=== PATIENT | female | born 1965 | race Caucasian/White ===

== ENCOUNTER 2019-09-12 02:09 | Emergency (ER) | payer OTHER ==
[~2019-09-12] VITALS: Ht 165.1 cm; Wt 63.5 kg
[~2019-09-12 02:09] MED LIST: LISINOPRIL10 MG PO; OMEPRAZOLE40 MG PO; ONDANSETRON HCL4 M2 PO; PREDNISONE 5 MG5 M1 PO; TRAMADOL 50 MG50 MG PO; VANCOCIN 125 M125 M1 PO
[2019-09-12] MEDS ORDERED: METOPROLOL SUCC50 MG PO (02:19)
[2019-09-12] MEDS ORDERED: NOLVADEX20 MG PO (02:19)
[2019-09-12] MEDS ORDERED: HYDROCHLOROTHIA25 M2 PO (02:21)
[2019-09-12] MEDS ORDERED: VITAMIN D3 COM1 EACH PO (02:22)
[2019-09-12] MEDS ORDERED: DICYCLOMINE HCL10 MG PO (02:22)
[2019-09-12 03:19] LABS: ABSOLUTE NEUTROPHILS 6.8 thou/uL (1.4-8.2); BASOPHILS 0.3 % (0.0-2.0); EOSINOPHILS 1.5 % (0.0-3.0); HEMATOCRIT 34.3 % (37.0-47.0); HEMOGLOBIN 11.5 gm/dL (12.0-15.0); LYMPHOCYTES 24.3 % (24.0-44.0); MCH 32.6 pg (26.0-34.0); MCHC 33.5 g/dL (28.0-37.0); MCV 97.3 fL (80.0-100.0); MONOCYTES 9.1 % (1.0-8.0); PLATELET COUNT 345 thou/uL (150-400); POLYS 64.8 % (36.0-66.0); RBC 3.53 mil/uL (4.20-5.00); RDW 11.2 % (10.5-14.5); WBC 10.6 thou/uL (4.0-11.0)
[2019-09-12 03:23] LABS: ANION GAP 8 mmol/L (7-16); BUN 29 mg/dL (7-18); CALCIUM 8.8 mg/dL (8.5-10.1); CHLORIDE 103 mmol/L (98-107); CO2 27 mmol/L (21-32); CREATININE 1.9 mg/dL (0.6-1.0); GLUCOSE 101 mg/dL (74-106); POTASSIUM 3.9 mmol/L (3.5-5.1); SODIUM 138 mmol/L (136-145)
[2019-09-12 03:33] LABS: ALBUMIN 3.3 g/dL (3.4-5.0); SGOT 14 U/L (15-37); SGPT 17 U/L (30-65); TOTAL BILIRUBIN 0.2 mg/dL (<0.1-1.0); TOTAL PROTEIN 7.6 g/dL (6.4-8.2); TROPONIN-I <0.06 ng/mL (<0.06)
[2019-09-12 04:51] VITALS: BP 117/64
--- NOTE | 2019-09-12 08:40 | EKG ---
[facility] [place] [address] ELECTROCARDIOGRAM REPORT Name: IGNACIO FERREIRA Room #: [facility].#: [id number] Admission: 09/12/19 Attend Phys: Discharge: 09/12/19 Date of : 69 Report #: [id number] THIS REPORT FOR: cc: [facility] - Clinic physician unknown [facility] - Clinic physician unknown Boom Snow MD [facility] THIS REPORT FOR: //name// [facility] ED Test Date: 2019-09-12 Test Time: 02:19:07 Pat Name: IGNACIO FERREIRA Department: Room: Gender: F Director [employer] Communications: : 1965 Requested By: Tae Juárez Order Number: [id number] MD: Boom Snow Measurements Intervals [place] Rate: 60 P: 134 IA: 158 QRS: 48 QRSD: 99 T: 63 QT: 410 QTc: 410 Interpretive Statements Sinus rhythm No significant abnormality Compared to ECG 02/01/2018 00:23:24 No significant changes Electronically Signed On 09-12-2019 8:39:26 CDT by Boom Snow [email or web address] <ELECTRONICALLY SIGNED> By: Boom Snow MD, FAC 09/12/19 0839 8 Boom Snow MD, [facility] /EPI
== END 2019-09-12 04:51 | disposition short-term general hospital (02) ==
LOC: ER 02:09
PROVIDERS: Emergency Medicine
DX: I62.9 Nontraumatic intracranial hemorrhage, unspecified (principal); G93.9 Disorder of brain, unspecified; R41.82 Altered mental status, unspecified; F17.210 Nicotine dependence, cigarettes, uncomplicated; Z79.899 Other long term (current) drug therapy

== ENCOUNTER 2021-01-17 23:24 | Emergency (ER) | payer OTHER ==
[~2021-01-17] VITALS: Ht 175.3 cm; Wt 83.9 kg
[~2021-01-17 23:24] MED LIST changes: +DICYCLOMINE HCL10 MG PO; +HYDROCHLOROTHIA25 M2 PO; +METOPROLOL SUCC50 MG PO; +NOLVADEX20 MG PO; +VITAMIN D3 COM1 EACH PO
[2021-01-18 00:52] LABS: ABSOLUTE NEUTROPHILS 6.3 thou/uL (1.4-8.2); BASOPHILS 0.5 % (0.0-2.0); EOSINOPHILS 0.3 % (0.0-3.0); HEMATOCRIT 39.3 % (37.0-47.0); HEMOGLOBIN 12.7 gm/dL (12.0-15.0); LYMPHOCYTES 23.1 % (24.0-44.0); MCHC 32.4 g/dL (28.0-37.0); MCV 92.6 fL (80.0-100.0); MONOCYTES 8.2 % (1.0-8.0); PLATELET COUNT 378 thou/uL (150-400); POLYS 67.9 % (36.0-66.0); RBC 4.25 mil/uL (4.20-5.00); RDW 12.5 % (10.5-14.5); WBC 9.2 thou/uL (4.0-11.0)
[2021-01-18 01:18] LABS: ANION GAP 11 mmol/L (7-16); BUN 25 mg/dL (7-18); CALCIUM 9.1 mg/dL (8.5-10.1); CHLORIDE 102 mmol/L (98-107); CO2 29 mmol/L (21-32); CREATININE 2.5 mg/dL (0.6-1.0); GLUCOSE 138 mg/dL (74-106); SODIUM 142 mmol/L (136-145)
[2021-01-18 01:24] LABS: ALBUMIN 3.7 g/dL (3.4-5.0); DIRECT BILIRUBIN < 0.1 mg/dL (<0.1-0.2); SALICYLATE < 2.8 mg/dL (2.8-20.0); SGOT 25 U/L (15-37); SGPT 27 U/L (14-59); TOTAL BILIRUBIN 0.4 mg/dL (0.2-1.0)
[2021-01-18 01:25] LABS: POTASSIUM 2.9 mmol/L (3.5-5.1)
[2021-01-18 01:49] LABS: AMP/METHAMP POSITIVE (Negative); BARBITURATES Negative (Negative); BENZODIAZEPINES Negative (Negative); COCAINE Negative (Negative); METHADONE Negative (Negative); OPIATES Negative (Negative); PCP Negative (Negative)
[2021-01-18 03:02] LABS: URINE BILIRUBIN NEGATIVE (Negative); URINE BLOOD 2+ (Negative); URINE CLARITY CLEAR; URINE COLOR YELLOW; URINE GLUCOSE-RANDOM* NEGATIVE (Negative); URINE KETONES NEGATIVE (Negative); URINE LEUKOCYTES-REFLEX TRACE (Negative); URINE NITRITE-REFLEX NEGATIVE (Negative); URINE PROTEIN (DIPSTICK) NEGATIVE (Negative); URINE UROBILINOGEN 0.2 E.U./dl (0.2-1.0)
[2021-01-18 03:12] LABS: BACTERIA-REFLEX 1-9 Few /HPF (None Seen); CRYSTALS None Seen /LPF (None Seen); HYALINE CASTS 0-3 Few /LPF (None Seen); MUCUS 0-3 Light strn/LPF (None Seen); SQUAMOUS 0-3 Few /LPF (0-3); URINE WBC-REFLEX 0-5 Rare /HPF (0-5)
[2021-01-18 12:00] LABS: CALCIUM 8.5 mg/dL (8.5-10.1); CREATININE 1.9 mg/dL (0.6-1.0)
[2021-01-18 12:01] LABS: POTASSIUM 4.5 mmol/L (3.5-5.1)
[2021-01-18 12:21] VITALS: BP 167/82
--- NOTE | 2021-01-18 16:11 | EKG ---
[facility] [place] [address] ELECTROCARDIOGRAM REPORT Name: IGNACIO FERREIRA Room #: [facility] Obed#: [id number] Admission: 01/17/21 Attend Phys: Discharge: 01/18/21 Date of : 69 Report #: [id number] [facility] ED Test Date: 2021-01-18 Test Time: 00:17:08 Pat Name: IGNACIO FERREIRA Department: Room: Gender: F [employer]: clementina : 1965 Requested By: Leonela Mason Order Number: [id number] MD: Ki Epstein Measurements Intervals [place] Rate: 91 P: 77 NJ: 203 QRS: 18 QRSD: 102 T: 59 QT: 416 QTc: 512 Interpretive Statements Sinus rhythm Borderline prolonged [place] interval Probable left atrial enlargement Left ventricular hypertrophy ST elev, probable normal early repol pattern Prolonged QT interval Compared to ECG 09/12/2019 02:19:07 Left ventricular hypertrophy now present ST (T wave) deviation now present Prolonged QT interval now present Electronically Signed On 01-18-2021 16:11:01 CDT by Ki Epstein [email or web address] <ELECTRONICALLY SIGNED> By: Ki Epstein MD, [facility] 01/18/21 1611 0017 0017 Ki Epstein MD, [facility] /EPI
== END 2021-01-18 13:53 ==
LOC: ER 23:24
PROVIDERS: Emergency Medicine
DX: T45.0X1A Poisoning by antiallergic and antiemetic drugs, accidental (unintentional), initial encounter (principal); Z20.822 Contact with and (suspected) exposure to COVID-19; N39.0 Urinary tract infection, site not specified; R45.1 Restlessness and agitation; N18.9 Chronic kidney disease, unspecified; E87.6 Hypokalemia; F29 Unspecified psychosis not due to a substance or known physiological condition; R45.851 Suicidal ideations; F19.10 Other psychoactive substance abuse, uncomplicated; D49.9 Neoplasm of unspecified behavior of unspecified site; F17.210 Nicotine dependence, cigarettes, uncomplicated; Z79.899 Other long term (current) drug therapy; Y92.89 Other specified places as the place of occurrence of the external cause

== ENCOUNTER 2021-01-18 13:59 | Inpatient (IN) | payer OTHER ==
[~2021-01-18] VITALS: Ht 165.1 cm; Wt 67.8 kg
[2021-01-18 15:14] LABS: CHOLESTEROL 169 mg/dL (<200); HDL CHOLESTEROL 63 mg/dL (>40); LDL CHOLESTEROL 83 mg/dL (<100); TC:HDL 2.7 Ratio (Not establshd); TRIGLYCERIDE 116 mg/dL (<150); VLDL 23 mg/dL (<40)
[2021-01-18 15:22] LABS: SERUM ASSESSMENT Clear
--- NOTE | 2021-01-18 15:51 | NUR ---
Patient arrived on [facility] unit via wheelchair, accomanied by two security men and one ER staff 01/18/21 @ 1410, she tranfered her self to bed 523A. VS 175/97,91,20, 97.8of, spo2 99% on RA, she is alert and oriented x4, skin intact, breath sound clear, active bowel sound, color pink with brisk capillary refill, no edema noted. Patient came through the ED due to been paranoid, delusional, she OD on drugs, meth/THC,unison, she is ready to for her , country and God, she could be an alien when she . she denies SI/HI, she ambulate with a steady gait no device needed, she signed herself in, will continue to monitor patient for safety
[2021-01-18 16:09] VITALS: BP 175/97
--- NOTE | 2021-01-18 18:39 | NUR ---
PATIENT ARRIVED ON [facility] UNIT VIA WHEELCHAIR, ACCOMPANIED BY TWO SECURITY MEN AND ONE ED STAFF 01/18/21 @1410, SHE TRANSFERED SELF TO BED 523A. VITAL/SIGN 175/97, 91, 20,97.8OF. PATIENT IS ALERT AND ORIENTED X4, SKIN INTACT, BREATH SOUND CLEAR, ACTIVE BOWEL SOUND, COLOR PINK WITH BRISK CAPILLARY REFILL, NO EDEMA NOTED, PATIENT CAME THROUGH ED YESTERDAY ACCOMPANIED BY HER DAUGHTER DUE TO OD ON DRUGS, SHE TOOK METH/THC, UNISON, SHE IS PARANOID AND DELUSIONAL, SHE WANT TO FOR HER ,COUNTRY AND GOD, SHE BELIEVE SHE COULD BE AN ALIEN WHEN SHE . SHE AMBULATE WITH A STEADY GAIT WITHOUT ANY DEVICES, SHE SIGNED HERSELF IN, PATIENT DENIES SI/HI. WILL CONTINUE TO MONITOR PATIENT
[2021-01-18 19:37] VITALS: BP 160/86
[2021-01-18 20:00] VITALS: BP 160/86
[2021-01-19 02:06] LABS: GLYCOHEMOGLOBIN (HGB A1C) 5.6 % (4.8-5.6)
--- NOTE | 2021-01-19 04:12 | NUR ---
PATIENT CARE WAS RESUMED AT 1900. ALERT AND ORIENTED AND RESTING IN HER BED. SHE IS ABLE TO VERBALISE NEEDS. LUNGS ARE CLEAR BS ACTIVE X4 QUADS.SHE DENIES ANY DISCOMFORT/SI/AVH/HI AT THIS TIME. SHE SPOKE WITH HER DAUGHTER THIS SHIFT. TOK HER MEDS WITHOUT ANY ISSUES. BED IS LOW, LOCKED AND SHE HAS A NON SKID SOCKS ON. CONTINUE CARE
[2021-01-19 06:11] LABS: CALCIUM 8.7 mg/dL (8.5-10.1); CREATININE 1.6 mg/dL (0.6-1.0); POTASSIUM 3.8 mmol/L (3.5-5.1)
[2021-01-19 09:10] VITALS: BP 137/72
--- NOTE | 2021-01-19 18:03 | NUR ---
Assumed pt care at 0700. pt was in the day room alert. Alert and oriented x4. Assessments completed, vss. Upon assessments pt Stated that she wants to , so that the new world will start. Pt believe she is the holy ghost and her will bring a new world. No c/o pain at this time. Reluctant about taking her meds. Pt requires extra time to take her meds. Took meds whole, no difficulty noted. Refused her nicotine patch. Stated she does not need it. Ambulates with a steady gait. No sign of acute distress noted upon assessments. At this time pt is in her room resting. will continue to monitor.
[2021-01-19 21:53] VITALS: BP 168/80
--- NOTE | 2021-01-20 02:53 | NUR ---
PT CARE ASSUMED AT 1900 WITH PT IN BED .PT IS A/O X4.PT REMAIN IN ROOM TILL THIS TIME.PT TAKES MEDS WHOLE WITH NO ISSUES BUT C/O MEDS INCREASE HER BP.MEDS USE WAS EXPLAINED TO PT.PT REMAIN CALM WITH NO BEHAVIORAL ISSUES TILL THIS TIME.WILL CONTINUE TO MONITOR PER POC
[2021-01-20 09:58] VITALS: BP 180/108
[2021-01-20 10:22] VITALS: BP 168/78
--- NOTE | 2021-01-20 10:58 | NUR ---
Dr. Sandoval & ANAND met with pt to complete psychosocial assessment on 01/19/21. Patient agreed to allow Dr. Sandoval and ANAND to speak to her via phone. informed patient has several medical conditions including being s/p CVA approximately 9 months ago. reports her mental health difficulties began secondary to this. Patient receives her medical care from [facility] but they have recently developed distrust with the care team. SW team will remain available while on this unit.
--- NOTE | 2021-01-20 12:23 | NUR ---
1223 RESUMMED CARE FROM OVERNIGHT SHIFT THIS AM, PATIENT ALERT TIMES 4. PATIENTS AFFECT FLAT PATIENT DENIES SI/HI/AH/VH AT PRESENT I ASKED PATIENT ABOUT DEPRESSION. PATIENT DENIES DEPRESSION OR ANXIETY PATIENT IS CALM COOPERATIVE. PATIENTS ABDOMEN SOFT BOWEL SOUNDS PRESENT PATIENTS LUNGS CLEAR. DR ALFRED TALKED WITH PATIENT THIS AM WILL CONTINUE TO MONITOR PATIENT FOR SAFETY AND BEHAVIORS.
--- NOTE | 2021-01-20 12:30 | NUR ---
Contact information for family: -Xavier Jarrett [phone] Daughter-Greta Jarrett [phone] cell or [phone] work
--- NOTE | 2021-01-20 15:51 | NUR ---
SW met with pt 1:1 to discuss his apprehensions about going to an AL. SW helped pt process feelings; helped him manage his expectations and provided support. SW team will remain available while on this unit.
[2021-01-20 19:59] VITALS: BP 176/94
[2021-01-20 20:00] VITALS: BP 172/90
--- NOTE | 2021-01-21 02:47 | NUR ---
01-20-21 CARE TRANSFERRED 1899 OBSERVED PT WALKING IN HALLWAY. LATER PT AAOX4, RECEIVED REPORT FROM LAUNDERETTE ATTENDANT THAT PT B/P WAS ELEVATED, RODO B/P TAKEN 172/90, PULSE 88, RR EVEN AND NONLABORED ON RA. PT DENIES PAIN AND SI/HI/VAH. PT REPORTED SHE DOES NOT WANT TO GROW OLD. DURING MEDICATION ADMIN PT HAD NO DIFFICULTIES TAKING MEDICATION WHOLE WITH WATER. PT REPORTED THAT SHE HAS THIS COIN THAT HAS A WHOLE IN IT AND SHE WAS HAVING ADVENTISM VISIONS, SHE WAS NOT HALLUCINATING. PT ALSO REPORTS THAT SHE ONLY DOES ONE LINE OF METH PER DAY, SHE ALSO REPORTS THAT SHE SLEEPS EVERY NIGHT. PT HAS PRESENTED RESTLESS BUT HAS REMAINED CALM AND COOPEATIVE. PT WILL CONTIUE TO BE MONITOR PER [facility] PROTOCOL.
--- NOTE | 2021-01-21 10:03 | NUR ---
Nutrition: pt admit to [facility] w/ psychosis, meth use, overdose sleeping tablets. Stable weights. Attempted interview. Pt reports usual appetite is good but not here. Noted of past 6 meals, average intake 26%. Pt did provide a few food preferences to RD. Does not like vegetables. Allowed RD to assist with dinner menu changes but kept stating she was going home today. Provided few preferences. No wasting observed. Noted judaism delusions. With hx of substance abuse, would rec order vitamin levels such as vitamin D, folic acid, B12 and start daily MVI. RD will offer ensure enlive at lunch and follow po trends. Place as low risk for now.
[2021-01-21 10:18] VITALS: BP 199/109
[2021-01-21] MEDS ORDERED: NORVASC5 MG PO (13:28)
[2021-01-21] MEDS ORDERED: HALOPERIDOL 5 MG5 MG PO (13:30)
--- NOTE | 2021-01-21 14:14 | NUR ---
ANAND and Dr. Rai met with the Pt in Dr. Christianson's office. The Pt's Xavier was apart of the meeting via phone. Dr. Rai recommended the Pt participate in substance abuse treatment and out pt psychiatry. The Pt stated she was could stop using meth on her own. When asked if she was willing to participate in treatment Pt stated " well I don't think I have much of a choice". Xavier stated he believed the Pt's diana was due to drinking 5 to 6 red bulls a day. Pt [facility] Pt was not sure if she had case management or a psychiatrist at [facility]. Pt stated she was willing to follow up with services at [facility]. Pt and requested discharged today. Discharge was set for 01/21/2021 @ 4pm to home. There were no further questions or concerns. After the meeting ANAND called [facility] to schedule a follow up appointment. ANAND was informed by the [facility] scheduling department that Pt did not have any established mental health services with the organization. Pt can do a walking and complete an intake anytime M-F, 8am-5pm. This information was given to the Pt verbally and put in the discharge documents. services with the organization
--- NOTE | 2021-01-21 16:29 | NUR ---
Patient care assumed 0700, sleeping in bed, got up for breakfast, assessment completed, breath sound clear, active bowel sound, she took her medication whole, denies si/hi, no behavior changes,
--- NOTE | 2021-01-23 08:46 | H ---
[facility] [place] [address] HISTORY AND PHYSICAL Name: IGNACIO FERREIRA Room #: 523A-A DIS IN M.R.#: [id number] Admission: 01/18/21 Attend Phys: Ariel Sandoval DO Discharge: 01/21/21 Date of : 69 Report #: [id number] THIS REPORT FOR: cc: [facility] - Clinic physician unknown [facility] - Clinic physician unknown Ariel Sandoval DO ~ DATE OF SERVICE: 01/18/2021 INPATIENT PSYCHIATRIC EVALUATION DATE OF ER PRESENTATION: 01/17/2021 ATTENDING PSYCHIATRIST: Ariel Sandoval DO EDI SPECIALIST: Praveen Cruz MD REASON FOR ADMISSION: Concern of overdose, suicidal ideation. SOURCES OF INFORMATION: Emergency Room records; interview with patient; telephone conversation with her , Xavier; records from [facility]. HISTORY OF PRESENT ILLNESS: A 55-year-old female brought by her family to the ER, her 19-year-old adult daughter was present in the ER. The patient had apparently taken 8 tablets of Unisom just prior to arrival. The patient states "I am a ghost. I want to for my ." She was very paranoid in the ER and distrustful with staff. Admits to marijuana and methamphetamine use. Daughter reports she was on Unisom medication in the past. The patient fled the ED waiting room and was brought back to the ED by staff. The patient has a history of breast cancer, status post radiation, no chemo; and brain aneurysms. She has refused further treatment reportedly. In the ER, she was hyperverbal, flight of ideas. She checked off from waiting room into the parking lot. Stating "I am a holy spirit." She was abrasive and uncooperative with staff. The patient's daughter is at the patient's bedside. Daughter states that the mother started acting irrationally tonight by throwing away everything made from [place]. The patient stated "I am the world and the holy spirit." States, she took 8 tablets from her sleeping tablets to kill herself "for ." Daughter reports ingestion occurred 1 hour prior to ER arrival. brought the patient to the ER. The patient started having hallucination. States she does not take prescription medications, but she smokes pot and does meth. She states to me today that she uses "a line of meth daily." She states the 1/2 of the 1/4 gram. The patient denies past psychiatric history, reportedly had stroke 9 months ago, breast cancer in remission. Supposedly only home medications are tamoxifen and Entyvio, which is an infusion for Crohn's disease. She smokes cigarettes of unspecified quantity, no alcohol use. Does use meth, reportedly marijuana. In the ER, EKG showed sinus rhythm, [facility] [address] [place] [address] HISTORY AND PHYSICAL Name: [place] Room #: 523A-A DIS IN M.R.#: [id number] Admission: 01/18/21 Attend Phys: Ariel Sandoval, DO Discharge: 01/21/21 Date of : 69 Report #: [id number] 91 beats per minute, first-degree AV block with [place] interval 203, QTc of 512. No ST elevations or T-wave inversions. No active chest pain. Urine drug screen in the ER showed positive for amphetamine/methamphetamines, positive for marijuana. No alcohol. COVID-19 was negative. Urinalysis showed 2+ blood, trace leukocyte esterase, moderate rbc's, otherwise urinalysis was grossly negative. Electrolytes in the ER, sodium 142, potassium 2.9, chloride 102, bicarbonate 29, anion gap 11, BUN 25, creatinine 2.5, estimated GFR 20, glucose 138, calcium 9.1. Total bilirubin 0.4, direct bilirubin less than 0.1, AST 25, ALT 27, alkaline phosphatase 97, total protein 8.0, albumin 3.7. White count 9.2, H and H of 12.7 and 39.3, platelet count 378. Toxicology: Negative salicylate. Negative acetaminophen. CT of the head was done here. There were mild microvascular changes bilaterally, partially calcified mass in the anterior frontal lobe measuring 2.3 cm x 1.8 cm. Evidently, they had a prior CT from 08/2019 to compare, there was a calcified metastatic mass or primary brain neoplasm, a small amount of surrounding edema appears likely. . Additionally, there were records obtained from [facility]. She was seen by Dr. Birch on 11/06/2020. The patient follows with [facility] Neurology in regard to her large left frontal cavernous hemangioma incidentally discovered on head CT. Diagnosed initially with a hemorrhagic stroke in 08/2019, characterized on MRI then. She was seen by [facility] Neurosurgery who advised against resection in light of imposed deficit versus benefits of resection. 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 This is somewhat complicated by her ongoing daily methamphetamine use. At last clinic visit, she was somewhat manic and very tangential, ultimately receptive to reminders of how her substance abuse affects the seizure threshold, seizure precautions and plan to get a followup MRI and EEG. Followup MRI in 09/2020 observed both cavernoma measuring 1.9 x 2.4 x 2.5 cm versus prior 1.9 x 2.4 x 2.3 cm in 10/2019, 1.9 x 2.4 x 2.5 cm in 03/2020. Routine EEG observed as normal in 10/2020. Interestingly, the patient was noted to present at [place] on 10/23/2020 in acute manic state having driven herself to [facility], ultimately found by security and transferred to the ED for evaluation. In the ED, she was manic and was hallucinating. Her AI tells her to do things and expressing delusions, celebrity elitism and paranoia, suspicions of heavy metal poisoning, but she was noted to be alert and oriented x 4. In the ED then, she reportedly doing a "line" of meth per day. UDS positive for meth and THC. The patient felt to be overstimulated secondary substance use, recent life stressors and discharged home. At the visit, Dr. Birch saw her on 11/06/2020. She was acutely manic with comment expressed to be somewhat consistent with prior delusions and hallucinations. She was observed with 2 successive systolic blood pressures 182 and 199. She endorsed meth use earlier in the day. She declined to take her blood pressure as well as recommendation to present to the ED, stating "she feels fine and great." Dr. Birch's impressions [place] [address] HISTORY AND PHYSICAL Name: [place] Room #: 523A-A DIS IN M.R.#: [id number] Admission: 01/18/21 Attend Phys: Ariel Sandoval, DO Discharge: 01/21/21 Date of : 69 Report #: [id number] cavernous hemangioma, possible localization related epilepsy, not on antiepileptic drugs. Polysubstance use, THC, methamphetamines. He wanted to repeat an MRI of the brain with and without contrast to be ordered for 2 years. The patient elected not to take any antiepileptic drugs. She understands and accepts risks of this decision. Seizure precautions revisited. The patient is currently driving, which I am sure was advised against. Declined substance use counseling. Interestingly, Dr. Birch did note on 11/06, there is nothing in her any recent history that states she is having focal seizures and interestingly labs from 10/23/2020 showed a potassium of 3.2, it was 2.9 on ED presentation. On 10/23 visit, they diagnosed her with strange and inexplicable behavior, at risk for elopement. Followup labs, triglycerides 116, cholesterol 169, LDL 83, HDL 63. A1c 5.6. Repeat electrolytes today 01/19/2021, sodium 143, potassium 3.8 which is now normalized, chloride 107, bicarbonate 27, BUN 17, creatinine is 1.6 -- it was 1.9 I believe yesterday, high of 2.5 this visit. COVID-19 was negative. CURRENT MEDICATIONS IN THE HOSPITAL: Nicotine patch 21 mg, 5 mg scheduled Haldol p.o. b.i.d., which she is taking. Otherwise, house PRNs. PHYSICAL EXAMINATION: VITAL SIGNS: Today, temperature 35.4, pulse is noted to be 50 this morning in question as a little bit increased pulse last night was 85, respiratory rate 17, BP 137/70, O2 sat 75%. the nurse noted sleep hours last night 11 hours slept. GENERAL: Wearing glasses, hospital gown with scrub pants on. Stated age. MENTAL STATUS EXAMINATION: This is a well-developed female, slightly unkempt. Attention fair. Concentration limited. Speech pressured. Fairly thought process, linear, at times becoming tangential. Thought content, focused on some of the bizarre sources alluded to in the Emergency Room in [place] documentation stating that these masks were affecting her. . Mood was irritable, constricted, congruent. She denied suicidal or homicidal ideation at this time outright. Denied auditory, visual, or tactile hallucinations. Memory not formally tested. Insight was limited. Judgment was limited. Fund of knowledge, no greater than average. Some additional points, she has a daughter. She has used meth since she was aged 13. She denied physical, sexual or emotional abuse. She endorses family substance use history, believes she said her father was an alcoholic, he when she was 18. She denies history of dementia in the family. [facility] [address] [place] [address] HISTORY AND PHYSICAL Name: HANNAHAXTUN, [place] Room #: 3AA DIS IN M.R.#: [id number] Admission: 01/18/21 Attend Phys: Ariel Sandoval DO Discharge: 01/21/21 Date of : 69 Report #: [id number] Interestingly Neurosurgery at [facility] declined when ER contacted them about brain lesion concerns . Records were obtained from [facility] and she was referred to us. Review of systems from the patient: She denied nausea, vomiting, fever, diarrhea or chills. Otherwise, brief 10-point review of systems was negative. FORMULATION: A 55-year-old female with history of ongoing illicit substance use, refusal to follow medical direction including neurology visits with Dr. Jimenez at [place], presenting with weak suicide attempt using Unisom. 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 PLAN: The patient is admitted voluntarily to [facility] at [facility]. She is already on a haloperidol 5 mg twice per day, I will go ahead and increase that to 5 mg 3 times a day since she started yesterday. Given the conversation we had with the patient's , he would like to discharge Thursday afternoon. She has been through the medical mill and I do not think prolonged hospitalization will ameliorate things and we will monitor her vital signs. Encourage her to engage in programming. Time spent on this case is about 90 minutes, greater than 50% of time was spent on reviewing records, coordination of care. STRENGTHS: She is insured, has family support. WEAKNESSES: Noncompliance, persistent substance use. <ELECTRONICALLY SIGNED> By: Ariel Sandoval DO 01/23/21 0846 1030 1258 Ariel Sandoval DO /nt
--- NOTE | 2021-01-23 09:33 | D ---
[facility] [place] [address] DISCHARGE SUMMARY Name: IGNACIO FERREIRA Room #: 523A-A DIS IN M.R.#: [id number] Admission: 01/18/21 Attend Phys: Ariel Sandoval DO Discharge: 01/21/21 Date of : 69 Report #: [id number] THIS REPORT FOR: cc: [facility] - Clinic physician unknown [facility] - Clinic physician unknown Ariel Sandoval DO ~ DATE OF SERVICE: 01/21/2021 PSYCHIATRIC DISCHARGE SUMMARY ATTENDING PSYCHIATRIST: Ariel Sandoval DO NURSES SUPERVISOR: Praveen Cruz M.D. 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 ADDITIONAL DIAGNOSES: Possible mild chronic renal failure, hypertension, brain aneurysm versus hemangioma, history of seizure in 08/2020, declined antiepileptic drug therapy. The patient is discharging to her home where she lives with her in [place], [place]. Psychiatric care for the patient is at [facility]. The patient is encouraged to see primary care physician in one month. She has an appointment later on with Dr. Birch at [facility] in 10/2022. Discharge psychiatric medication, which I doubt the patient will fill is haloperidol 7.5 mg oral twice daily. Also, amlodipine 10 mg oral daily for hypertension. She has a home vitamin D3 Complete multivitamin one daily orally. The patient is not to smoke, drink alcohol or use recreational drugs. She inhales amphetamine. She does not use tobacco. Regular diet. LABORATORY DATA: Significant laboratories this admission: Hematology: White count 9.2, H and H 12.7 and 39.3, platelet count 378. Sodium 143, potassium 3.8, chloride 107, bicarbonate 27, anion gap 9, BUN 17, creatinine slightly high at 1.6, estimated GFR 34, glucose 89. A1c 5.6, calcium 8.7, total bilirubin 0.4, direct bilirubin less than 0.1, AST 25, ALT 27, alkaline phosphatase 97. There is some remote labs; total protein 8.0, albumin 3.7, triglycerides 115. Total cholesterol 159, LDL 83, HDL 63. Urinalysis this admission had 2+ blood, moderate rbc's, few bacteria, hyaline casts. No culture was triggered. Toxicology this admission was positive for amphetamines, methamphetamines and marijuana. Salicylate less than 2.8. Alcohol less than 10. COVID-19 serology was negative. REASON FOR ADMISSION: Back on 01/18/2021 was 55-year-old female brought by family to the ER, the patient was stating bizarre things "I am a ghost" She was paranoid in the ER, she was kept overnight, agreed to psychiatric admission the next day. [facility] [address] [place] [address] DISCHARGE SUMMARY Name: IGNACIO FERREIRA Room #: 523A-A [facility] IN M.R.#: [id number] Admission: 01/18/21 Attend Phys: Ariel Sandoval DO Discharge: 01/21/21 Date of : 69 Report #: [id number] HOSPITAL COURSE: The patient was admitted to Geriatric Psychiatry Unit. She has had a complex medical history with a stroke 9 months ago, breast cancer in remission and reported cavernous hemangioma in her brain. Despite these problems, the patient continues to heavily abuse methamphetamines reportedly inhaling, a wine per day. Records were obtained from [facility], which shows a similar presentation in [facility] at [place] in October of this year. The patient was not willing to go to the ER at that time. I spoke with her , Xavier during this admission about my concerns for her that if she continues using these illicit drugs, having the periods of psychosis, hypertension urgency, her life expectancy is going to be limited to her mid 50s, likely later we had a family meeting day of discharge, which I repeated my concerns. I begged her to engage in dual diagnosis therapy that would include addictions treatment. The patient has very limited inside for this. At the time of discharge, she was not suicidal or homicidal. Temperature 36.1, pulse 95, respirations 18, blood pressure morning of discharge 199/109, thinking she may have refused hypertensive medications, but says she took it. MENTAL STATUS EXAMINATION: A well-developed female appearing stated age. Attention, concentration fair. Speech; labile and tone. Thought process: Linear and goal directed. Thought content focused on discharge. Denied SI, HI. Denied auditory, visual, or tactile hallucinations. Memory not formally tested. Mood and affect; irritable, congruent, constricted. Denied SI, HI. Insight and judgment limited. Fund of knowledge, no greater than average and I see if there was a repeat blood pressure for the patient. Prognosis for this patient is guarded to poor given her poor insight and hazardous behavior, reluctance to followup for mental health treatment and medical needs. <ELECTRONICALLY SIGNED> By: Ariel Sandoval, 01/23/21 0933 02 26 Ariel Sandoval DO /nt
== END 2021-01-21 16:19 | disposition home or self-care (01) | DRG 885 ==
LOC: SBH 13:59
PROVIDERS: Nurse Practitioner Family; ADMIT Psychiatry & Neurology Psychiatry; ATTEND Psychiatry & Neurology Psychiatry
DX: F29 Unspecified psychosis not due to a substance or known physiological condition (principal); N18.9 Chronic kidney disease, unspecified; K50.90 Crohn's disease, unspecified, without complications; R45.851 Suicidal ideations; F15.959 Other stimulant use, unspecified with stimulant-induced psychotic disorder, unspecified; F39 Unspecified mood [affective] disorder; D18.00 Hemangioma unspecified site; I67.1 Cerebral aneurysm, nonruptured; I12.9 Hypertensive chronic kidney disease with stage 1 through stage 4 chronic kidney disease, or unspecified chronic kidney disease; Z85.3 Personal history of malignant neoplasm of breast
CPT/HCPCS: 10880